=== PATIENT | male | born 1965 | race Caucasian/White ===

== ENCOUNTER 2016-07-01 02:07 | Emergency (ER) | payer BC, OTHER ==
--- NOTE | 2016-07-01 02:28 | Emergency Department Record ---
History of Present Illness - General Chief Complaint: Back Pain/Injury Stated Complaint: BACK PAIN Time Seen by Provider: 07/01/16 02:14 Source: Patient Mode of Arrival: Ambulatory Limitations: No limitations - History of Present Illness Initial Comments: 50 yo male presents with about 5 days of right shoulder pain. He felt a pop with raising the right arm. Since that time the pain has persisted with certain movements. He saw his chiropractor twice without improvement of symptoms. At times he has a tingling in the index and middle finger. No weakness. He has pain with lifting the arm. No swelling. MD Complaint: Back pain, Other Onset/Timin -: Days(s) Place: Home Severity scale (1-10): 9 Quality: Aching Consistency: Constant Improves With: None Worsens With: Movement Associated Symptoms: Numbness Treatments Prior to Arrival: Cold therapy, NSAIDS - Related Data Previous Rx's Medication Instructions Recorded Hydrocodone/Acetaminophen [[place] 1 each PO Q6H PRN #15 tablet 07/01/16 5-325 Tablet] Methylprednisolone [Medrol Dose 0 mg PO UD #1 tab.ds.pk 07/01/16 Pack] Allergies Allergy/AdvReac Type Severity Reaction Status Date / Time No Known Drug Allergies Allergy Verified 07/01/16 02:10 Travel Screening - Travel/Exposure Within Last 30 Days Have you traveled within the last 30 days?: No - Travel Symptoms Symptom Screening: None Review of Systems Constitutional: Denies: Chills, Fever, Malaise, Weakness Eyes: Denies: Eye discharge ENT: Denies: Congestion, Throat pain Respiratory: Denies: Cough, Dyspnea, Hemoptysis, Stridor, Wheezes Cardiovascular: Denies: Chest pain, Palpitations, Syncope Endocrine: Denies: Fatigue Gastrointestinal: Denies: Abdominal pain, Diarrhea, Nausea, Vomiting Genitourinary: Denies: Dysuria, Frequency, Hematuria Musculoskeletal: Reports: Arthralgia, Myalgia, Neck pain. Denies: Joint swelling Skin: Denies: Bruising, Change in color, Rash Neurological: Denies: Headache, Numbness, Vertigo, Weakness Psychiatric: Denies: Anxiety Hematological/Lymphatic: Denies: Blood Clots, Easy bleeding, Easy bruising, Swollen glands Past Medical History - SOCIAL HISTORY Smoking Status: Former smoker - RESPIRATORY Hx Respiratory Disorders: No - CARDIOVASCULAR Hx Cardio Disorders: No - NEURO Hx Neuro Disorders: No - GI Hx GI Disorders: No - Hx Genitourinary Disorders: No - ENDOCRINE Hx Endocrine Disorders: No - MUSCULOSKELETAL Hx Musculoskeletal Disorders: No - PSYCH Hx Psych Problems: No - HEMATOLOGY/ONCOLOGY Hx Hematology/Oncology Disorders: No Family Medical History Any Significant Family History?: Yes Hx Dementia: Grandparents Hx Heart Disease: Mother Physical Exam - General General Appearance: Alert, Oriented x3, Cooperative, No acute distress Limitations: No limitations - Head Head exam: Normal inspection - Eye Eye exam: Normal appearance, PERRL. negative: Conjunctival injection, Periorbital swelling - ENT ENT exam: Normal exam, Mucous membranes moist Ear exam: Normal external inspection Nasal Exam: Normal inspection Mouth exam: Normal external inspection Teeth exam: Normal inspection Throat exam: Normal inspection - Neck Neck exam: Normal inspection, Full ROM. negative: Meningismus, Tenderness, Thyromegaly - Respiratory Respiratory exam: Normal lung sounds bilaterally. negative: Accessory muscle use, Respiratory distress, Rhonchi, Stridor, Wheezes - Cardiovascular Cardiovascular Exam: Regular rate, Normal rhythm, Normal heart sounds Peripheral Pulses: 2+: Radial (R) - Rectal Rectal exam: Deferred - exam: Deferred - Extremities Extremities exam: Normal inspection, Full ROM, Normal capillary refill, Tenderness. negative: Joint swelling Image of Full Body: 1 - tender posterior shoulder, pain with abduction, pain with shoulder external radiation, Radial, Median, Ulnar motor intact, roster clerk full, wrist extesion strong, OK sign unbreakable, no swelling - Back Back exam: Reports: Normal inspection, Full ROM. Denies: Muscle spasm, Rash noted, Tenderness - Neurological Neurological exam: Alert, Normal gait, Oriented X3, Reflexes normal. negative: Altered, Motor sensory deficit - Psychiatric Psychiatric exam: Normal affect, Normal mood. negative: Agitated, Anxious - Skin Skin exam: Dry, Intact, Normal color, Warm. negative: Erythema Course Vital Signs 07/01/16 02:11 Temperature 97.6 F Pulse Rate 83 Respiratory 18 Rate Blood Pressure 148/93 Pulse Ox 98 - Reevaluation(s) Reevaluation #1: The patient was seen and examined The pain is reliably reproducible with ROM, Neurovascular intact. 07/01/16 02:34 Reevaluation #2: the XR's were reviewed Mild degenerative changes noted in the shoulder and the cervical spine. No obviousl loose bodies, FX, effusions, dislocations. 07/01/16 03:11 Disposition Disposition: Discharge Clinical Impression: Shoulder pain, acute Qualifiers: Laterality: right Qualified Code(s): M25.511 - Pain in right shoulder Disposition: Home, Self-Care Condition: (1) Good Instructions: Rotator Cuff Injury (ED), Cervical Spine Strain (ED) Additional Instructions: continue to ice the area to prevent inflammation and swelling call your doctor for close follow up this week return if you have uncontrolled pain or any new concerns Prescriptions: Hydrocodone/Acetaminophen [[place] 5-325 Tablet] 1 each PO Q6H PRN #15 tablet PRN Reason: Pain - General Methylprednisolone [Medrol Dose Pack] 0 mg PO UD #1 tab.ds.pk Forms: Patient Portal Access Time of Disposition: 03:15
[2016-07-01] MEDS: HYDROCODONE/APAP 5/325MG TABLET PO ONE (03:23)
== END 2016-07-01 03:28 | disposition home or self-care (01) ==
LOC: ER 02:07
DX: G89.11 Acute pain due to trauma (principal); M25.511 Pain in right shoulder; R20.0 Anesthesia of skin; M54.2 Cervicalgia; X50.0XXA Overexertion from strenuous movement or load, initial encounter
CPT/HCPCS: 72050; 99283